=== PATIENT | female | born 2000 ===

== ENCOUNTER 2018-04-04 11:07 | Emergency (ER) | payer MEDICAID, OTHER ==
[2018-04-04] MEDS ORDERED: Sodium Chloride 0.9% 1,000 ML IV STA (11:47)
--- NOTE | 2018-04-04 11:55 | ED PDOC ---
HPI: General Adult Time Seen by Provider: 04/04/18 11:38 Chief Complaint (Nursing): Dizziness/Lightheaded Chief Complaint (Provider): dizziness History Per: Patient History/Exam Limitations: no limitations Onset/Duration Of Symptoms: Other (x 1 month) Current Symptoms Are (Timing): Still Present Additional Complaint(s): 17-year-old female, with a past medical history of kidney infections when pt was younger, presents to emergency department for dizziness for 2 months that comes and goes. Pt reports more room-spining dizziness today, prompting ED visit. Pt reports she is not taking any medications. (-) numbness, (-) tingling, (-) chest pain, (-) shortness of breath, (-) headache, (-) abdominal pain, (-) nausea, (-) vomiting. Pt thought dizziness was related to diet. Pt reports she changed her diet, but did not help much. PMD: [place] Past Medical History Reviewed: Historical Data, Nursing Documentation, Vital Signs Vital Signs: Last Vital Signs Temp 98.4 F 04/04/18 11:22 Pulse 79 04/04/18 11:22 Resp 16 04/04/18 11:22 BP 144/81 04/04/18 11:22 Pulse Ox 100 04/04/18 13:40 - Medical History PMH: Denies: Diabetes, Hepatitis, HIV, HTN, Seizures, Sexually Transmitted Disease Other PMH: kidney infections when pt was younger - Surgical History Surgical History: No Surg Hx - Family History Family History: States: Unknown Family Hx - Immunization History Hx Tetanus Toxoid Vaccination: No Hx Influenza Vaccination: No Hx Pneumococcal Vaccination: No - Home Medications Home Medications: Ambulatory Orders Medication Instructions Recorded Meclizine [Meclizine*] 25 mg PO Q12 PRN #10 tab 04/04/18 - Allergies Allergies/Adverse Reactions: Allergies Allergy/AdvReac Type Severity Reaction Status Date / Time brompheniramine maleate Allergy RASH Verified 04/09/16 17:48 [From Dimetapp DM Cold-Cough (PE)] dextromethorphan HBr Allergy RASH Verified 04/09/16 17:48 [From [employer]et[employer] DM Cold-Cough (PE)] phenylephrine HCl Allergy RASH Verified 04/09/16 17:48 [From [employer]et[employer] DM Cold-Cough (PE)] Review of Systems ROS Statement: Except As Marked, All Systems Reviewed And Found Negative Cardiovascular: Negative for: Chest Pain Respiratory: Negative for: Shortness of Breath Gastrointestinal: Negative for: Nausea, Vomiting, Abdominal Pain Neurological: Positive for: Dizziness (room-spining). Negative for: Numbness, Headache, Other (tingling) Physical Exam - Reviewed Nursing Documentation Reviewed: Yes Vital Signs Reviewed: Yes - Physical Exam Appears: Positive for: Well, Non-toxic, No Acute Distress Head Exam: Positive for: ATRAUMATIC, NORMAL INSPECTION, NORMOCEPHALIC Skin: Positive for: Normal Color, Warm, DRY Eye Exam: Positive for: EOMI, Normal appearance, PERRL ENT: Positive for: Normal ENT Inspection Neck: Positive for: Normal Cardiovascular/Chest: Positive for: Regular Rate, Rhythm Respiratory: Positive for: Normal Breath Sounds. Negative for: Respiratory Distress Gastrointestinal/Abdominal: Positive for: Normal Exam, Soft. Negative for: Tenderness Back: Positive for: Normal Inspection Extremity: Positive for: Normal ROM. Negative for: Deformity Neurologic/Psych: Positive for: Alert, platform builder II-XII, Oriented (x 3). Negative for : Motor/Sensory Deficits - Laboratory Results Result Diagrams: 04/04/18 12:28 04/04/18 12:28 Interpretation Of Abn Labs: no acute Urine POC: Negative - ECG ECG: Positive for: Interpreted By Me, Viewed By Me ECG Rhythm: Positive for: Normal QRS, Normal ST Segment, Sinus Rhythm O2 Sat by Pulse Oximetry: 100 (RA) Pulse Ox Interpretation: Normal - Progress ED Course And Treament: 1449: Stable. AAOx3. Pain free. Tolerated PO. Fu with pcp. Medical Decision Making Medical Decision Making: Impression: Dizziness evaluation Plan: - EKG - CMP - Magnesium - Phosphorous - Troponin I - ED Urine - CBC (with differential) - Antivert 25 mg PO - Sodium Chloride 0.9% 1,000 ml IV 1,000 mls/hr (-) ED Urine Scribe Attestation: Documented by Juaquin Metcalf, acting as a scribe for Shaan Merlos MD. Provider Scribe Attestation: All medical record entries made by the Scribe were at my direction and personally dictated by me. I have reviewed the chart and agree that the record accurately reflects my personal performance of the history, physical exam, medical decision making, and the department course for this patient. I have also personally directed, reviewed, and agree with the discharge instructions and disposition. Disposition - Clinical Impression Clinical Impression: Dizziness - Patient ED Disposition Is Patient to be Admitted: No Counseled Patient/Family Regarding: Studies Performed, Diagnosis, Need For Followup, Rx Given - Disposition Referrals: [facility] [Outside] - 04/07/18 Disposition: Routine/Home Disposition Time: 14:50 Condition: STABLE Additional Instructions: Return if not better in 3 days. Prescriptions: Meclizine [Meclizine*] 25 mg PO Q12 PRN #10 tab PRN Reason: Dizziness Instructions: Vertigo (a Type of Dizziness) Forms: [employer] ([place] Citizen), [facility] ED School/Work Excuse
[2018-04-04 12:34] LABS: BASO % 0.7 % (0.0-2.0); EOS # 0.1 K/uL (0.0-0.7); EOS % 1.5 % (0.0-4.0); LYMPH # 1.5 K/uL (1.0-4.3); LYMPH % 26.9 % (20.0-40.0); MEAN CELL VOLUME 92.4 fl (81.0-99.0); MEAN CORPUSCULAR HGB CONC 33.6 g/dL (33.0-37.0); MEAN PLATELET VOLUME 8.6 fl (7.2-11.7); MONO # 0.4 K/uL (0.0-0.8); MONO % 7.3 % (0.0-10.0); NEUT # 3.6 K/uL (1.8-7.0); NEUT % 63.6 % (50.0-75.0); NRBC % 0.1 % (0.0-0.0); RBC 4.51 Mil/uL (3.80-5.20); RED CELL DISTRIBUTION WIDTH 14.5 % (11.5-14.5); WHITE BLOOD COUNT 5.7 K/uL (4.8-10.8)
[2018-04-04 13:03] LABS: BLOOD UREA NITROGEN 10 mg/dl (7-17); GFR NON-AFRICAN AMERICAN > 60
[2018-04-04 13:04] LABS: ALB/GLOB RATIO 1.4 (1.0-2.1); ALBUMIN 4.5 g/dL (3.5-5.0); CALCIUM 9.3 mg/dL (8.4-10.2)
[2018-04-04 13:05] LABS: ALT/SGPT 26 U/L (9-52); AST/SGOT 25 U/L (14-36)
[2018-04-04 15:17] VITALS: RESP 18; TEMP 98.2; O2SAT 99
[2018-04-04 15:20] VITALS: BP 126/78; PULSE 78
--- NOTE | 2018-04-04 21:08 | CARD ---
APPROVED REPORT Date of service: 04/04/2018 EKG Measurement Heart [id number] <Conclusion> Normal sinus rhythm Normal ECG
== END 2018-04-04 15:18 | disposition home or self-care (01) ==
LOC: H.ER 11:07
DX: R42 Dizziness and giddiness (principal)
CPT/HCPCS: 80053; 81025; 83735; 84100; 84484; 85025; 93005; 99285; J7030